=== PATIENT | male | born 1980 | race Two or more races ===

== ENCOUNTER 2024-07-29 17:59 | Emergency (ER) | payer MEDICAID, OTHER ==
[~2024-07-29] VITALS: Ht 177.8 cm; Wt 113.9 kg
[2024-07-29] MEDS: HYDROcodone-ACET 5/325MG TAB PO ONE (20:56)
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
[2024-07-29 21:33] VITALS: BP 115/79; PULSE 86; RESP 20; TEMP 98.2; O2SAT 94
[2024-07-29] MEDS ORDERED: IBUP-1456 PO (21:39)
[2024-07-29] MEDS ORDERED: TIZA-142 PO (21:39)
== END 2024-07-29 21:57 | disposition home or self-care (01) ==
LOC: ER 17:59
DX: S13.4XXA Sprain of ligaments of cervical spine, initial encounter (principal); V43.52XA Car driver injured in collision with other type car in traffic accident, initial encounter; Y93.89 Activity, other specified; Y92.410 Unspecified street and highway as the place of occurrence of the external cause; Y99.8 Other external cause status
CPT/HCPCS: 72040